=== PATIENT | male | born 1945 | race Caucasian/White ===

== ENCOUNTER 2020-03-05 13:03 | Outpatient (CLI) | payer MEDICARE, BC ==
--- NOTE | 2020-03-05 14:50 | XRAY Report ---
PROCEDURE: Wrist 3 View RT INDICATIONS: EPICONDYLITIS TECHNIQUE: 3 views of the wrist were acquired. COMPARISON: None FINDINGS: Bones: No fractures or dislocations. No suspicious bony lesions. Scaphoid view: Not requested Soft tissues: No suspicious soft tissue calcifications. IMPRESSION: No acute fracture. No osseous lesion. If symptoms and/or clinical suspicion for pathology continue, f urther assessment with repeat plain films, or advanced imaging (e.g., CT, MRI, or bone scan) is recom mended for further assessment. Reviewed by: Taras Cates MD on 03/05/2020 2:49 PM PST Approved by: Taras Cates MD on 03/05/2020 2:49 PM PST Station ID: [id number]
--- NOTE | 2020-03-05 14:57 | XRAY Report ---
PROCEDURE: Elbow 3 View RT INDICATIONS: EPICONDYLITIS TECHNIQUE: 3 views of the elbow were acquired. COMPARISON: None FINDINGS: Bones: No fractures or dislocations. No suspicious bony lesions. Mild periarticular osteophyte for mation at the elbow joint. Soft tissues: No elbow joint effusion. No suspicious soft tissue calcifications. IMPRESSION: 1. If there is clinical evidence for epicondylitis, MRI is recommended for further assessment. 2. Osteoarthritis. No acute fracture. No osseous lesion. If symptoms and/or clinical suspicion for pa thology continue, further assessment with repeat plain films, or advanced imaging (e.g., CT, MRI, or bone scan) is recommended for further assessment. Reviewed by: Taras Cates MD on 03/05/2020 2:56 PM PST Approved by: Taras Cates MD on 03/05/2020 2:56 PM PST Station ID: [id number]
== END 2020-03-05 13:04 | disposition home or self-care (01) ==
LOC: DI 13:03
PROVIDERS: ATTEND Family Medicine
DX: M77.11 Lateral epicondylitis, right elbow (principal); M19.021 Primary osteoarthritis, right elbow